=== PATIENT | male | born 1975 ===

== ENCOUNTER 2018-04-19 16:03 | Emergency (ER) | payer OTHER ==
[2018-04-19 16:56] VITALS: TEMP 98.5; O2SAT 99
--- NOTE | 2018-04-19 17:07 | ED PDOC ---
Arrival/HPI - General Chief Complaint: Trauma Time Seen by Provider: 04/19/18 16:14 Historian: Patient - History of Present Illness Narrative History of Present Illness (Text): 04/19/18 17:05 42yo male with no pmhx who present with complaint of left sided rib pain s/p trauma yesterday. States he fell inside a tub and hit his left rib against it. Reports pain with any movement, deep inspiration or cough. Did not take any medication for the pain. Denies SOB, diaphoresis, chest pain, any other complaint. Past Medical History - Provider Review Nursing Documentation Reviewed: Yes - Psychiatric Hx Substance Use: No - Anesthesia Hx Anesthesia: No Hx Anesthesia Reactions: No Hx Malignant Hyperthermia: No Family/Social History - Physician Review Nursing Documentation Reviewed: Yes Family/Social History: Unknown Family HX Smoking Status: Light Smoker < 10 Cigarettes Daily Hx Alcohol Use: No Hx Substance Use: No Allergies/Home Meds Allergies/Adverse Reactions: Allergies No Known Allergies Allergy (Verified 04/19/18 16:52) Review of Systems - Physician Review All systems were reviewed & negative as marked: Yes - Review of Systems Constitutional: Normal Eyes: Normal ENT: Normal Respiratory: Normal Cardiovascular: Normal Gastrointestinal: Normal Genitourinary Male: Normal Musculoskeletal: Arthralgias (Left ribs) Skin: Normal Neurological: Normal Endocrine: Normal Hemo/Lymphatic: Normal Psychiatric: Normal Physical Exam Vital Signs Reviewed: Yes Vital Signs Temp Pulse Resp BP Pulse Ox 04/19/18 16:04 98.5 F 83 18 126/80 99 Temperature: Afebrile Blood Pressure: Normal Pulse: Regular Respiratory Rate: Normal Appearance: Positive for: Well-Appearing, Non-Toxic, Comfortable Pain Distress: None Mental Status: Positive for: Alert and Oriented X 3 - Systems Exam Head: Present: Atraumatic, Normocephalic Pupils: Present: PERRL Extroacular Muscles: Present: EOMI Conjunctiva: Present: Normal Mouth: Present: Moist Mucous Membranes Neck: Present: Normal Range of Motion Respiratory/Chest: Present: Clear to Auscultation, Good Air Exchange, Tender to Palpation (LEft lateral and anterior ribs). No: Respiratory Distress, Accessory Muscle Use, Wheezes, Decreased Breath Sounds, Rales, Retracting, Rhonchi, Tachypneic Cardiovascular: Present: Regular Rate and Rhythm, Normal S1, S2. No: Murmurs Abdomen: No: Tenderness, Distention, Peritoneal Signs Back: Present: Normal Inspection Upper Extremity: Present: Normal Inspection. No: Cyanosis, Edema Lower Extremity: Present: Normal Inspection. No: Edema Neurological: Present: GCS=15, CN II-XII Intact, Speech Normal Skin: Present: Warm, Dry, Normal Color. No: Rashes Psychiatric: Present: Alert, Oriented x 3, Normal Insight, Normal Concentration Medical Decision Making ED Course and Treatment: 04/20/18 02:00 PT present to ED for stated history Left rib/chest xray IMPRESSION: Unremarkable radiographs of the chest and left ribs. No left rib fracture. Pt's pain was controlled in ED and result was DW the pt. He was DC home with analgesic and referred to his PMD/clinic - RAD Interpretation Radiology Orders: 04/19/18 17:01 RIBS LEFT & PA CHEST [RAD] Stat Disposition/Present on Arrival - Present on Arrival Any Indicators Present on Arrival: No History of DVT/PE: No History of Uncontrolled Diabetes: No Urinary Catheter: No History of Decub. Ulcer: No History Surgical Site Infection Following: None - Disposition Have Diagnosis and Disposition been Completed?: Yes Diagnosis: Rib sprain Disposition: HOME/ ROUTINE Disposition Time: 18:20 Patient Plan: Discharge Condition: FAIR Discharge Instructions (ExitCare): Bruised Rib (DC) Additional Instructions: Follow up with your Doctor Return to ED for any new or worsening symptoms Prescriptions: RX: Ibuprofen [Motrin Tab] 600 mg PO Q6 #15 tab RX: traMADol [Ultram] 50 mg PO TID #9 tab Referrals: Citlali Pang MD [Medical Doctor] - Follow up with primary Forms: [employer] ([place]ian)
--- NOTE | 2018-04-19 18:19 | RAD ---
Date of service: 04/19/2018 PROCEDURE: Radiographs of the Chest and Left Ribs. HISTORY: left ribs pain s/p trauma COMPARISON: None available. TECHNIQUE: Frontal radiograph of the chest and multiple oblique radiographs of the left ribs were obtained. FINDINGS: LEFT RIBS: No fracture or focal lesion visualized. LUNGS: Clear. PLEURA: No pneumothorax or pleural fluid. CARDIOVASCULAR: Normal cardiac size. No pulmonary vascular congestion. No aortic atherosclerotic calcification present OTHER FINDINGS: None. IMPRESSION: Unremarkable radiographs of the chest and left ribs. No left rib fracture.
[2018-04-19 18:58] VITALS: BP 131/72; PULSE 76; RESP 20
== END 2018-04-19 18:40 | disposition home or self-care (01) ==
LOC: ED 16:03
DX: S23.41XA Sprain of ribs, initial encounter (principal); W19.XXXA Unspecified fall, initial encounter; F17.210 Nicotine dependence, cigarettes, uncomplicated
CPT/HCPCS: 71101; 96372; 99284; J1885